=== PATIENT | female | born 1990 | race African-American/Black ===

== ENCOUNTER 2016-09-20 19:33 | Emergency (ER) | payer MEDICAID ==
[2016-09-20] MEDS ORDERED: METOCLOPRAMIDE 10 MG/2 ML VIAL ONE (20:59)
[2016-09-20] MEDS ORDERED: DIPHENHYDRAMINE 50 MG/ML VIAL ONE (20:59)
[2016-09-20] MEDS ORDERED: ONDANSETRON 4 MG VIAL ONE (21:00)
[2016-09-20] MEDS ORDERED: SODIUM CHLORIDE 0.9% 1,000 ML ONE (21:00)
== END 2016-09-20 22:12 | disposition home or self-care (01) ==
LOC: ER 19:33
DX: K52.9 Noninfective gastroenteritis and colitis, unspecified (principal)
CPT/HCPCS: 36415; 80053; 81001; 83690; 84703; 85025; 87804; 87880; 96361; 96374; 96375